=== PATIENT | female | born 1965 | race Hispanic/Latino ===

== ENCOUNTER 2018-08-07 13:13 | Emergency (ER) | payer BC, OTHER ==
[2018-08-07 14:06] LABS: Absolute Lymphocytes (CBC) 1.6 K/uL (0.7-4.9); Absolute Monocytes 0.4 K/uL (0.1-1.3); Basophils % 0.7 % (0-1.3); Eosinophils % 1.8 % (0-4.4); Hematocrit 38.2 % (36.0-45.0); Lymphocytes % 22.4 % (15.3-44.8); MPV 9.9 fL (7.6-11.3); RBC Red Blood Cell Count 4.25 M/uL (3.86-4.86)
[2018-08-07 14:22] LABS: ALT/SGPT 75 U/L (12-78); AST/SGOT 35 U/L (15-37); Albumin 3.2 g/dL (3.4-5.0); Alkaline Phosphatase 167 U/L (45-117); BUN Blood Urea Nitrogen 13 mg/dL (7-18); Bicarbonate 28 mmol/L (21-32); Bilirubin Direct 0.1 mg/dL (0-0.2); Bilirubin Total 0.3 mg/dL (0.2-1.0); Glucose Level 269 mg/dL (74-106); Lipase 101 U/L (73-393); Potassium 4.3 mmol/L (3.5-5.1); Sodium Level 138 mmol/L (136-145)
[2018-08-07 14:38] LABS: Urine Blood NEGATIVE (NEG); Urine Glucose TRACE (NEG); Urine Protein NEGATIVE (NEG); Urine Specific Gravity >1.030 (1.005-1.030); Urine pH 5.5 (5.0-7.0)
--- NOTE | 2018-08-07 14:56 | RAD REPORT ---
EXAM DESCRIPTION: CTAbdomen Pelvis W Contrast - 08/07/2018 2:42 pm CLINICAL HISTORY: Abdominal pain. right lower abdominal pain, pelvic pain, IV ONLY COMPARISON: No comparisons TECHNIQUE: Biphasic CT imaging of the abdomen and pelvis was performed with 100 ml non-ionic IV cont rast. All CT scans are performed using dose optimization technique as appropriate and may include automated exposure control or mA/KV adjustment according to patient size. FINDINGS: The lung bases are clear. The liver, spleen, pancreas, adrenal glands and kidneys are within normal limits. Cholecystectomy. No bowel obstruction, free air, free fluid or abscess. Moderate stool is present in the rectum. The a ppendix is normal. No evidence of significant lymphadenopathy. Moderate L4-5 spondylosis. IUD appears mildly low in position at the lower uterine segment level. IMPRESSION: IUD appears low in position at the level of the lower uterine segment. No ovarian cyst. Normal appendix.
[2018-08-07] MEDS ORDERED: ONDANSETRON 4 MG/2 ML VIAL ONE (15:31)
[2018-08-07] MEDS ORDERED: MORPHINE 4 MG/ML SYR ONE (15:31)
--- NOTE | 2018-08-07 16:13 | RAD REPORT ---
EXAM DESCRIPTION: US - Transvaginal Study Probe - 08/07/2018 3:55 pm CLINICAL HISTORY: right sided pelvic pain, rule out torsion Pelvic pain. COMPARISON: No comparisons FINDINGS: The uterus is normal in size, shape and echotexture. Vague fundal intramural fibroid is pr esent measuring 17 x 15 mm. The uterus measures 9.1 x 6.0 x 4.9 cm. The endometrial stripe is thin with IUD present in the lower uterine segment. The left ovary was obscured by bowel gas. The right ovary is normal in size, shape and echotexture with normal Doppler blood flow. The right ov yolanda measures 2.6 x 1.9 x 1.7 cm. No significant pelvic ascites. IMPRESSION: IUD is in the lower uterine segment. No evidence of right ovarian torsion or right sided ovarian abnormality. Left ovary was obscured by b owel gas. Small intramural fibroid in the fundal region measuring 17 x 15 mm.
--- NOTE | 2018-08-07 16:53 | EDPHYS ---
Physician Documentation [facility] Name: Cindy Martines Age: 53 yrs Sex: Female : 1965 Arrival Date: 08/07/2018 Time: 13:17 Bed 30 Private MD: Laura Corado ED Physician Emmanuel Boogie HPI: 08/07 14:09 This 53 yrs old Female presents to ER via Ambulatory with complaints of Pelvic jmm Pain. 14:09 The patient presents with abdominal pain. Onset: The symptoms/episode began/occurred jmm gradually, 1 month(s) ago. The symptoms radiate to right leg. The symptoms are described as achy, sharp. Modifying factors: The symptoms are alleviated by nothing, the symptoms are aggravated by movement, pressure. This is a 53 year old female with a history of dm , htn, hlp that presents to the ED with lower abdominal and pelvic pain beginning 1 month ago. Patient states pain radiates to the right thigh, right hip. Denies vomiting, diarrhea, fever. . Historical: - Allergies: 13:28 No Known Allergies; ss - PMHx: 13:28 Diabetes - IDDM; Hypertension; High Cholesterol; Depression; ss 13:29 Hypothyroidism; ss - PSHx: 13:28 Cholecystectomy; ; ss - Immunization history:: Adult Immunizations up to date. - Social history:: Smoking status: Patient/guardian denies using tobacco. - Ebola Screening: : Patient denies exposure to infectious person Patient denies travel to an Ebola-affected area in the 21 days before illness onset. ROS: 14:09 Constitutional: Negative for fever, chills, and weight loss, Cardiovascular: Negative jmm for chest pain, palpitations, and edema, Respiratory: Negative for shortness of breath, cough, wheezing, and pleuritic chest pain. 14:09 Abdomen/GI: Positive for abdominal pain. 14:09 : Positive for pelvic pain. 14:09 All other systems are negative. Exam: 14:09 Head/Face: atraumatic. Eyes: EOMI, no conjunctival erythema appreciated ENT: Moist jmm Mucus Membranes Neck: Trachea midline, Supple Chest/axilla: Normal chest wall appearance and motion. Cardiovascular: Regular rate and rhythm. No edema appreciated Respiratory: Normal respirations, no respiratory distress appreciated 14:09 Constitutional: The patient appears in no acute distress, alert, awake. 14:09 Abdomen/GI: Inspection: obese Bowel sounds: normal, Palpation: soft, moderate abdominal tenderness, in the suprapubic area and right lower quadrant. 14:09 Skin: Appearance: Color: normal in color. 14:09 Neuro: Orientation: is normal, Mentation: is normal, Memory: is normal. 14:09 Psych: Behavior/mood is pleasant, cooperative. Vital Signs: 13:28 BP 138 / 80; Resp 15; Temp 98.3(TE); Pulse Ox 95% on R/A; Weight 104.33 kg; Height 5 ss ft. 0 in. (152.40 cm); Pain 8/10; 15:20 BP 147 / 60; Pulse 73; Resp 16; Pulse Ox 99% on R/A; kr2 17:01 BP 140 / 76; Pulse 72; Resp 17; Pulse Ox 99% on R/A; kr2 13:28 Body Mass Index 44.92 (104.33 kg, 152.40 cm) ss MDM: 13:39 Patient medically screened. [facility] 16:37 Data reviewed: vital signs, nurses notes. Counseling: I had a detailed discussion with ramon the patient and/or guardian regarding: the historical points, exam findings, and any diagnostic results supporting the discharge/admit diagnosis, lab results, radiology results, the need for outpatient follow up, to return to the emergency department if symptoms worsen or persist or if there are any questions or concerns that arise at home. 16:37 Response to treatment: the patient's symptoms have markedly improved after treatment, ramon and as a result, I will discharge patient. 08/07 13:44 Order name: Basic Metabolic Panel; Complete Time: 14:41 [facility] 08/07 13:44 Order name: CBC with Diff; Complete Time: 14:41 [facility] 08/07 13:44 Order name: Creatinine for Radiology; Complete Time: 14:41 [facility] 08/07 13:44 Order name: Hepatic Function; Complete Time: 14:41 [facility] 08/07 13:44 Order name: Lipase; Complete Time: 14:41 [facility] 08/07 13:44 Order name: Test, Serum; Complete Time: 14:41 [facility] 08/07 13:44 Order name: IV Saline Lock; Complete Time: 14:04 [facility] 08/07 13:44 Order name: CT Abd/Pelvis - W/Contrast; Complete Time: 15:08 [facility] 08/07 14:06 Order name: Urine Dipstick--Ancillary (enter results); Complete Time: 14:41 bd 08/07 14:06 Order name: Urine --Ancillary (enter results); Complete Time: 14:41 bd 08/07 15:21 Order name: Transvaginal Study Probe; Complete Time: 16:19 [facility] 08/07 13:44 Order name: Labs collected and sent; Complete Time: 14:04 [facility] 08/07 13:44 Order name: Urine Dipstick-Ancillary (obtain specimen); Complete Time: 14:04 [facility] Administered Medications: 15:27 Drug: Zofran 4 mg Route: IVP; Site: right antecubital; kr2 16:00 Follow up: Response: No adverse reaction kr2 15:30 Drug: morphine 4 mg Route: IVP; Site: right antecubital; kr2 16:00 Follow up: Response: No adverse reaction; Pain is decreased kr2 Disposition: 18:43 Co-signature as Attending Physician, Emmanuel Boogie MD. rn Disposition: 08/07/18 16:52 Discharged to Home. Impression: Abdominal and pelvic pain. - Condition is Stable. - Discharge Instructions: Pelvic Pain, Female. - Prescriptions for Tylenol- Codeine #3 300-30 mg Oral Tablet - take 1 tablet by ORAL route every 6 hours As needed; 20 tablet. - Medication Reconciliation Form, Thank You Letter, Antibiotic Education, Prescription Opioid Use form. - Follow up: Laura Corado MD; When: 2 - 3 days; Reason: Recheck today's complaints, Continuance of care, Re-evaluation by your physician. Signatures: Dispatcher [employer] [facility] Tommy Mckay PA PA Emmanuel Nieves MD MD rn Smirch, Shelby, RN RN ss Reaves, Karey, RN RN kr2 Corrections: (The following items were deleted from the chart) 15:21 15:19 Pelvis Complete+US.RAD.BRZ ordered. [facility] 17:05 16:52 08/07/2018 16:52 Discharged to Home. Impression: Abdominal and pelvic pain. kr2 Condition is Stable. Forms are Medication Reconciliation Form, Thank You Letter, Antibiotic Education, Prescription Opioid Use. Follow up: Laura Corado; When: 2 - 3 days; Reason: Recheck today's complaints, Continuance of care, Re-evaluation by your physician. ramon
--- NOTE | 2018-08-07 16:53 | ER ---
Nurse's Notes [facility] Name: Cindy Martines Age: 53 yrs Sex: Female : 1965 Arrival Date: 08/07/2018 Time: 13:17 Bed 30 Private MD: Laura Corado Diagnosis: Abdominal and pelvic pain Presentation: 08/07 13:25 Presenting complaint: Patient states: RLQ pain that radiates down R leg, is worse when ss bending over or stretching x [address] Langston ordered testing to r/o ovarian cyst, but ultrasound is scheduled for August 18, and patient reports that her her pain is just not getting better. Transition of care: patient was not received from another setting of care. Onset of symptoms was June 2018. Risk Assessment: Do you want to hurt yourself or someone else? Patient reports no desire to harm self or others. Initial Sepsis Screen: Does the patient meet any 2 criteria? No. Patient's initial sepsis screen is negative. Does the patient have a suspected source of infection? No. Patient's initial sepsis screen is negative. Care prior to arrival: None. 13:25 Method Of Arrival: Ambulatory ss 13:25 Acuity: JEYSON 3 ss Triage Assessment: 14:05 General: Appears in no apparent distress. comfortable, Behavior is calm, cooperative, kr2 appropriate for age. Pain: Complains of pain in right lower quadrant Pain radiates to right lower leg Pain currently is 5 out of 10 on a pain scale. Quality of pain is described as aching, radiating, sharp, Is continuous. Historical: - Allergies: 13:28 No Known Allergies; ss - PMHx: 13:28 Diabetes - IDDM; Hypertension; High Cholesterol; Depression; ss 13:29 Hypothyroidism; ss - PSHx: 13:28 Cholecystectomy; ; ss - Immunization history:: Adult Immunizations up to date. - Social history:: Smoking status: Patient/guardian denies using tobacco. - Ebola Screening: : Patient denies exposure to infectious person Patient denies travel to an Ebola-affected area in the 21 days before illness onset. Screenin:05 Abuse screen: Denies threats or abuse. Denies injuries from another. Nutritional kr2 screening: No deficits noted. Tuberculosis screening: No symptoms or risk factors identified. Fall Risk None identified. Assessment: 14:07 General: Appears in no apparent distress. comfortable, Behavior is calm, cooperative. kr2 Neuro: Level of Consciousness is awake, alert, obeys commands, Oriented to person, place, time, situation, Appropriate for age. Cardiovascular: Patient's skin is warm and dry. Respiratory: Airway is patent Respiratory effort is even, unlabored, Respiratory pattern is regular, symmetrical. GI: Abdomen is flat, non-distended, Bowel sounds present X 4 quads. : Denies burning with urination. Derm: Skin is intact, is healthy with good turgor, Skin is pink, warm \T\ dry. 15:15 Reassessment: Patient appears in no apparent distress at this time. Patient and/or kr2 family updated on plan of care and expected duration. Pain level reassessed. Patient is alert, oriented x 3, equal unlabored respirations, skin warm/dry/pink. 16:26 Reassessment: Patient appears in no apparent distress at this time. Patient and/or kr2 family updated on plan of care and expected duration. Pain level reassessed. Patient is alert, oriented x 3, equal unlabored respirations, skin warm/dry/pink. Pain decreased with morphine. Vital Signs: 13:28 BP 138 / 80; Resp 15; Temp 98.3(TE); Pulse Ox 95% on R/A; Weight 104.33 kg; Height 5 ss ft. 0 in. (152.40 cm); Pain 8/10; 15:20 BP 147 / 60; Pulse 73; Resp 16; Pulse Ox 99% on R/A; kr2 17:01 BP 140 / 76; Pulse 72; Resp 17; Pulse Ox 99% on R/A; kr2 13:28 Body Mass Index 44.92 (104.33 kg, 152.40 cm) ED Course: 13:17 Patient arrived in ED. sb2 13:18 Laura Corado MD is Private Physician. sb2 13:27 Triage completed. ss 13:28 Arm band placed on left wrist. ss 13:30 Aimee Henning, RN is Primary Nurse. kr2 13:33 Tommy Mckay PA is PHCP. jmm 13:33 Emmanuel Boogie MD is Attending Physician. jmm 13:48 Radiology exam delayed due to lab results not completed at this time. test mw3 not completed at this time. 13:55 Inserted saline lock: 22 gauge in right antecubital area, using aseptic technique. kr2 Blood collected. 14:00 Patient has correct armband on for positive identification. Bed in low position. Call kr2 light in reach. Side rails up X 1. Adult w/ patient. Pulse ox on. NIBP on. Door closed. Head of bed elevated. 14:04 Basic Metabolic Panel Sent. kr2 14:04 CBC with Diff Sent. kr2 14:04 Creatinine for Radiology Sent. kr2 14:04 Hepatic Function Sent. kr2 14:04 Lipase Sent. kr2 14:43 CT Abd/Pelvis - W/Contrast In Process Unspecified. EDMS 15:55 Transvaginal Study Probe In Process Unspecified. EDMS 16:52 Laura Corado MD is Referral Physician. [facility] 17:01 No provider procedures requiring assistance completed. IV discontinued, intact, kr2 bleeding controlled, No redness/swelling at site. Pressure dressing applied. Administered Medications: 15:27 Drug: Zofran 4 mg Route: IVP; Site: right antecubital; kr2 16:00 Follow up: Response: No adverse reaction kr2 15:30 Drug: morphine 4 mg Route: IVP; Site: right antecubital; kr2 16:00 Follow up: Response: No adverse reaction; Pain is decreased kr2 Outcome: 16:52 Discharge ordered by . [facility] 17:02 Discharged to home ambulatory, with family. kr2 17:02 Condition: good 17:02 Discharge instructions given to patient, Instructed on discharge instructions, follow up and referral plans. medication usage, Demonstrated understanding of instructions, follow-up care, medications, Prescriptions given X 1. 17:05 Patient left the ED. kr2 Signatures: Dispatcher [employer] EDMS Tommy Mckay PA PA jmm Smirch, Shelby, RN RN ss Aimee Henning RN RN kr2 Angela Clark2 Lupe Gray mw3
== END 2018-08-07 17:05 | disposition home or self-care (01) ==
LOC: ER 13:13
DX: R10.2 Pelvic and perineal pain (principal); I10 Essential (primary) hypertension
CPT/HCPCS: 36415; 74177; 76830; 80048; 80076; 81003; 81025; 83690; 84703; 85025; 96374; 96375; 99284; J2405; Q9967

== ENCOUNTER 2020-10-15 08:48 | Emergency (ER) | payer BC ==
--- NOTE | 2020-10-15 09:09 | EDPHYS ---
Physician Documentation [facility] Name: Cindy Martines Age: 55 yrs Sex: Female : 1965 Arrival Date: 10/15/2020 Time: 08:51 Bed 4 Private MD: ED Physician Emmanuel Boogie HPI: 10/15 09:06 This 55 yrs old Female presents to ER via Unassigned with complaints of rn Shingles. 09:06 The patient's rash thought to be caused by an unknown cause. The rash is located on the rn left lower back. The rash can be described as erythematous, vesicular. Onset: The symptoms/episode began/occurred 3 day(s) ago. Severity of symptoms: At their worst the symptoms were mild in the emergency department the symptoms are unchanged. The patient has not experienced similar symptoms in the past. Reports painful rash to left lower back, wraps around to left abdomen, no fever.. Historical: - Allergies: :07 No Known Allergies; hb - PMHx: 09:07 Depression; Diabetes - IDDM; High Cholesterol; Hypertension; Hypothyroidism; hb - PSHx: 09:07 Cholecystectomy; ; hb - Immunization history:: Adult Immunizations up to date. - Social history:: Smoking status: Patient denies any tobacco usage or history of. - Family history:: not pertinent. - Hospitalizations: : No recent hospitalization is reported. ROS: 09:06 Constitutional: Negative for fever, chills, and weight loss, Skin: + rash to left lower rn back Neuro: Negative for headache, weakness, and seizure. Exam: 09:06 Constitutional: This is a well developed, well nourished patient who is awake, alert, rn and in no acute distress. Skin: Warm, dry, + erythematous base with papular and pustular lesions in linear distribution left lower back and left abdomen. Vital Signs: 09:02 BP 169 / 84; Pulse 78; Resp 16; Temp 97.7; Pulse Ox 100% on R/A; Pain 5/10; hb MDM: 08:59 Patient medically screened. rn 09:06 Differential diagnosis: shingles. Data reviewed: vital signs, nurses notes, and as a rn result, I will discharge patient. Counseling: I had a detailed discussion with the patient and/or guardian regarding: the historical points, exam findings, and any diagnostic results supporting the discharge/admit diagnosis, the need for outpatient follow up, to return to the emergency department if symptoms worsen or persist or if there are any questions or concerns that arise at home. Special discussion: I discussed with the patient/guardian in detail that at this point there is no indication for admission to the hospital. It is understood, however, that if the symptoms persist or worsen the patient needs to return immediately for re-evaluation. Administered Medications: No medications were administered Disposition: 10/15/20 09:08 Discharged to Home. Impression: Zoster [herpes zoster]. - Condition is Stable. - Discharge Instructions: Shingles. - Prescriptions for Valtrex 1 g Oral Tablet - take 1 tablet by ORAL route every 8 hours for 7 days; 21 tablet. Prednisone 20 mg Oral Tablet - take 1 tablet by ORAL route as directed for 10 days Take 3 tablets by mouth daily for 5 days, then take 2 tablets by mouth daily for 3 days, then take 1 tablet by mouth daily for 2 days, total of 10 days.; 23 tablet. - Medication Reconciliation Form, Thank You Letter, Antibiotic Education, Prescription Opioid Use form. - Follow up: Private Physician; When: As needed; Reason: Recheck today's complaints, Re-evaluation by your physician. - Problem is new. - Symptoms are unchanged. Signatures: Emmanuel Boogie MD MD rn Baxter, Heather, RN RN Corrections: (The following items were deleted from the chart) 09:19 09:08 10/15/2020 09:08 Discharged to Home. Impression: Zoster [herpes zoster]. hb Condition is Stable. Forms are Medication Reconciliation Form, Thank You Letter, Antibiotic Education, Prescription Opioid Use. Follow up: Private Physician; When: As needed; Reason: Recheck today's complaints, Re-evaluation by your physician. Problem is new. Symptoms are unchanged. rn
--- NOTE | 2020-10-15 09:09 | ER ---
Nurse's Notes [facility] Name: Cindy Martines Age: 55 yrs Sex: Female : 1965 Arrival Date: 10/15/2020 Time: 08:51 Bed 4 Private MD: Diagnosis: Zoster [herpes zoster] Presentation: 10/15 09:02 Chief complaint: Painful, burning rash on left flank x 3 days. Coronavirus screen: At this time, the client does not indicate any symptoms associated with coronavirus-19. Ebola Screen: No symptoms or risks identified at this time. Initial Sepsis Screen: Does the patient meet any 2 criteria? No. Patient's initial sepsis screen is negative. Does the patient have a suspected source of infection? No. Patient's initial sepsis screen is negative. Risk Assessment: Do you want to hurt yourself or someone else? Patient reports no desire to harm self or others. Onset of symptoms was October 12, 2020. 09:02 Method Of Arrival: Ambulatory 09:02 Acuity: JEYSON 4 hb Triage Assessment: 09:03 General: Appears in no apparent distress. Behavior is calm, cooperative. Pain: Pain hb currently is 5 out of 10 on a pain scale. EENT: No signs and/or symptoms were reported regarding the EENT system. Neuro: Level of Consciousness is awake, alert, obeys commands, Oriented to person, place, time, situation. Cardiovascular: Capillary refill < 3 seconds Patient's skin is warm and dry. Respiratory: Respiratory effort is even, unlabored, Respiratory pattern is regular, symmetrical. GI: No signs and/or symptoms were reported involving the gastrointestinal system. : No signs and/or symptoms were reported regarding the genitourinary system. Derm: Rash noted that is left flank. Musculoskeletal: No signs and/or symptoms reported regarding the musculoskeletal system. Historical: - Allergies: : No Known Allergies; hb - PMHx: : Depression; Diabetes - IDDM; High Cholesterol; Hypertension; Hypothyroidism; hb - PSHx: 09: Cholecystectomy; ; hb - Immunization history:: Adult Immunizations up to date. - Social history:: Smoking status: Patient denies any tobacco usage or history of. - Family history:: not pertinent. - Hospitalizations: : No recent hospitalization is reported. Screenin:03 Abuse screen: Denies threats or abuse. Denies injuries from another. Nutritional hb screening: No deficits noted. Tuberculosis screening: No symptoms or risk factors identified. Fall Risk None identified. Assessment: 09:03 General: see triage assessment . hb Vital Signs: 09:02 BP 169 / 84; Pulse 78; Resp 16; Temp 97.7; Pulse Ox 100% on R/A; Pain 5/10; hb ED Course: 08:51 Patient arrived in ED. mr 08:59 Emmanuel Boogie MD is Attending Physician. rn 08:59 Judy Burns, MADELINE is Primary Nurse. ph 09:03 Patient has correct armband on for positive identification. Bed in low position. Call hb light in reach. 09:07 Triage completed. hb 09:17 Arm band placed on. hb 09:19 No provider procedures requiring assistance completed. Patient did not have IV access hb during this emergency room visit. Administered Medications: No medications were administered Outcome: :08 Discharge ordered by . rn 09:19 Discharged to home ambulatory. hb 09:19 Condition: stable 09:19 Discharge instructions given to patient, Instructed on discharge instructions, follow up and referral plans. medication usage, Demonstrated understanding of instructions, follow-up care, medications, Prescriptions given X 2. 09:19 Patient left the ED. hb Signatures: Yaenlis Villela mr Emmanuel Boogie MD MD rn Judy Burns RN RN Julia Fitch RN RN hb
[2020-10-15 09:24] VITALS: BP 169/84; TEMP 97.7; O2SAT 100
== END 2020-10-15 09:19 | disposition home or self-care (01) ==
LOC: ER 08:48
DX: B02.9 Zoster without complications (principal); I10 Essential (primary) hypertension
CPT/HCPCS: 99282

== ENCOUNTER 2021-02-20 14:54 | Observation (INO) | payer BC ==
[2021-02-20 20:11] LABS: Absolute Lymphocytes (CBC) 2.4 K/uL (0.7-4.9); Basophils % 1.2 % (0-1.3); Hematocrit 38.2 % (36.0-45.0); Lymphocytes % 30.7 % (15.3-44.8); MPV 10.4 fL (7.6-11.3); RBC Red Blood Cell Count 4.23 M/uL (3.86-4.86)
[2021-02-20 20:20] LABS: Protime INR 0.91
[2021-02-20 20:31] LABS: ALT/SGPT 16 U/L (12-78); AST/SGOT 12 U/L (15-37); Albumin 3.5 g/dL (3.4-5.0); Alkaline Phosphatase 74 U/L (45-117); BUN Blood Urea Nitrogen 21 mg/dL (7-18); Bicarbonate 25 mmol/L (21-32); Bilirubin Direct < 0.1 mg/dL (0-0.2); Bilirubin Total 0.3 mg/dL (0.2-1.0); Glucose Level 248 mg/dL (74-106); Lipase 143 U/L (73-393); Magnesium 2.4 mg/dL (1.8-2.4); NT PRO-BNP 14 pg/mL (<125); Potassium 4.4 mmol/L (3.5-5.1); Protein, Total 7.4 g/dL (6.4-8.2); Sodium Level 136 mmol/L (136-145); Troponin (Emerg Dept Use Only) < 0.02 ng/mL (0.0-0.045)
--- NOTE | 2021-02-20 20:48 | RAD REPORT ---
EXAM DESCRIPTION: RAD - Chest Single View - 02/20/2021 8:22 pm CLINICAL HISTORY: CHEST PAIN COMPARISON: July 2016 TECHNIQUE: AP portable chest image was obtained 02/20/2021 8:22 pm . FINDINGS: Lung volumes are low accentuating interstitial pattern. No peripheral mass or consolidatio n. No significant failure or volume overload. Heart and vasculature are normal. No measurable pleural effusion and no pneumothorax. No acute bony abnormality seen. No acute aortic findings suspected. IMPRESSION: No acute cardiopulmonary process. No significant change from comparison study.
[2021-02-20] MEDS ORDERED: MORPHINE 2 MG/ML SYR ONE (20:59)
[2021-02-20] MEDS ORDERED: ONDANSETRON 4 MG/2 ML VIAL ONE (20:59)
--- NOTE | 2021-02-20 21:16 | ER ---
Nurse's Notes [facility] Name: Cindy Martines Age: 55 yrs Sex: Female : 1965 Arrival Date: 02/20/2021 Time: 14:56 Bed 2 Private MD: NANCY JACOBS Diagnosis: Chest pain, unspecified Presentation: 02/20 15:04 Chief complaint: Patient states: chest pain that began yesterday and radiating to back aa5 today. Pt denies any other symptoms. Pt reports she has only been taking her diabetes medication over the last year because of COVID, she's been out of HTN meds and Thyroid meds. Coronavirus screen: At this time, the client does not indicate any symptoms associated with coronavirus-19. Ebola Screen: Patient negative for fever greater than or equal to 101.5 degrees Fahrenheit, and additional compatible Ebola Virus Disease symptoms. Initial Sepsis Screen: Does the patient meet any 2 criteria? No. Patient's initial sepsis screen is negative. Does the patient have a suspected source of infection? No. Patient's initial sepsis screen is negative. Risk Assessment: Do you want to hurt yourself or someone else? Patient reports no desire to harm self or others. Onset of symptoms was February 2021. 15:04 Method Of Arrival: Ambulatory aa5 15:04 Acuity: JEYSON 3 aa5 Historical: - Allergies: 15:04 No Known Allergies; aa5 - PMHx: 15:04 Depression; Diabetes - IDDM; High Cholesterol; Hypertension; Hypothyroidism; aa5 - Immunization history:: Client reports receiving the 1st dose of the Covid vaccine, Flu vaccine is not up to date. - Social history:: Smoking status: Patient denies any tobacco usage or history of. Screenin:02 Abuse screen: Denies threats or abuse. Denies injuries from another. Nutritional ad5 screening: No deficits noted. Tuberculosis screening: No symptoms or risk factors identified. Fall Risk None identified. Assessment: 20:00 General: Appears in no apparent distress. Behavior is calm, cooperative, appropriate ad5 for age. Pain: Complains of pain in chest Pain does not radiate. Pain began gradually, 1 day ago. Neuro: Level of Consciousness is awake, alert, obeys commands, Oriented to person, place, time, situation, Appropriate for age Moves all extremities. Cardiovascular: Reports chest pain, fatigue, lightheadedness, Heart tones present Capillary refill < 3 seconds Patient's skin is warm and dry. Pulses are all present. Rhythm is regular. Respiratory: No deficits noted. Airway is patent Respiratory effort is even, unlabored, Respiratory pattern is regular, symmetrical. GI: Reports nausea, poor appetite. : No deficits noted. No signs and/or symptoms were reported regarding the genitourinary system. Derm: Skin is pink, warm \T\ dry. 20:30 Reassessment: Patient appears in no apparent distress at this time. Pt refused ordered ad5 pain meds at this time, denies new or worsening c/o or needs at this time. Pt resting comfortably in stretcher, resp with ease. VS remain stable, call light within reach, bed low and locked, bedrails x 1. Will continue to monitor. 21:12 Reassessment: Patient appears in no apparent distress at this time. Patient and/or ad5 family updated on plan of care and expected duration. Pain level reassessed. Patient is alert, oriented x 3, equal unlabored respirations, skin warm/dry/pink. 22:00 Reassessment: Patient appears in no apparent distress at this time. No changes from ad5 previously documented assessment. Patient and/or family updated on plan of care and expected duration. Pain level reassessed. 23:15 Reassessment: Pt up to restroom, ambulates independently with steady gait. Repositioned ad5 for comfort into bed. VSS. Denies other needs or c/o. Call light within reach. NAD noted, will continue to monitor. Vital Signs: 15:04 BP 142 / 69; Pulse 77; Resp 18 S; Temp 98.4(TE); Pulse Ox 99% on R/A; Weight 109.32 kg aa5 (R); Height 5 ft. 1 in. (154.94 cm) (R); 19:43 BP 120 / 57; Pulse 74; Resp 18 S; Pulse Ox 99% on R/A; ad5 21:14 BP 111 / 48; Pulse 73; Resp 18 S; Pulse Ox 99% on R/A; ad5 22:00 BP 100 / 79; Pulse 76; Resp 18 S; Pulse Ox 97% on R/A; ad5 23:15 BP 133 / 62; Pulse 68; Resp 18 S; Pulse Ox 94% ; ad5 15:04 Body Mass Index 45.54 (109.32 kg, 154.94 cm) aa5 ED Course: 14:56 Patient arrived in ED. am2 14:57 NANCY JACOBS is Private Physician. am2 15:04 Arm band placed on. aa5 15:06 Triage completed. aa5 15:09 EKG completed in triage. Results shown to MD. aa5 19:38 Olman Hobson MD is Attending Physician. 7 19:43 Conor Santos is Primary Nurse. ad5 20:00 XRAY Chest (1 view) Sent. ad5 20:00 No provider procedures requiring assistance completed. Initial lab(s) drawn, by ms, ad5 sent to lab. Inserted saline lock: 20 gauge in right antecubital area, using aseptic technique. Blood collected. 20:22 XRAY Chest (1 view) In Process Unspecified. EDMS 21:16 Dawit Rodríguez MD is Hospitalizing Provider. [facility] 22:00 Patient has correct armband on for positive identification. Bed in low position. Call ea light in reach. trucking manager on. 22:01 Patient admitted, IV remains in place. ea 22:01 Patient maintains SpO2 saturation greater than 95% on room air. ea Administered Medications: 21:15 Not Given (Patient Refused): morphine 2 mg IVP once; (PAIN>8) RASS on ADMN: Combtv4, ad5 Very Agttd3, Agttd2, Rstlss1, AlertClm0, Drwsy-1, LtSdtn-2, ModSdtn-3, DpSdtn-4, UnArsble-5 x2 21:15 Not Given (Patient Refused): Zofran (Ondansetron) 4 mg IVP once; over 2 minutes ad5 21:25 Drug: Aspirin Chewable Tablet 324 mg Route: PO; ad5 Outcome: 21:16 Decision to Hospitalize by Provider. [facility] 22:00 Admitted to ER Hold. Please see [facility] for further documentation. ea 22:00 Condition: stable 22:00 Instructed on the need for admit, Demonstrated understanding of instructions. 02/21 14:34 Patient left the ED. kg Signatures: Dispatcher [employer] EDMS Abby Schwartz RN RN 5 Celestina Castro am2 Renetta Rivas RN RN Olman Purdy MD MD 7 Rhonda Gee RN RN kg Conor Santos
--- NOTE | 2021-02-20 21:17 | EDPHYS ---
Physician Documentation [facility] Name: Cindy Martines Age: 55 yrs Sex: Female : 1965 Arrival Date: 02/20/2021 Time: 14:56 Bed 2 Private MD: NANCY JACOBS ED Physician Olman Hobson HPI: 02/20 19:55 This 55 yrs old Female presents to ER via Ambulatory with complaints of Chest mh7 Pain. 19:55 The patient or guardian reports chest pain that is located primarily in the substernal mh7 area. Onset: last night. The pain radiates to left back. Associated signs and symptoms: Pertinent positives: dizziness, lightheadedness, nausea, Pertinent negatives: abdominal pain, cough, diaphoresis, headache, lower extremity pain, lower extremity swelling, near syncope, palpitations, recent travel, shortness of breath, syncope, vomiting. The chest pain is described as burning. Duration: The patient or guardian reports multiple episodes, that are intermittent, that wax and wane, with no pattern. Modifying factors: The symptoms are alleviated by nothing. the symptoms are aggravated by movement. Severity of pain: At its worst the pain was moderate last night, in the emergency department the pain has improved moderately. Historical: - Allergies: 15:04 No Known Allergies; aa5 - PMHx: 15:04 Depression; Diabetes - IDDM; High Cholesterol; Hypertension; Hypothyroidism; aa5 - Immunization history:: Client reports receiving the 1st dose of the Covid vaccine, Flu vaccine is not up to date. - Social history:: Smoking status: Patient denies any tobacco usage or history of. ROS: 19:55 Constitutional: Negative for fever, chills, and weight loss, Eyes: Negative for injury, mh7 pain, redness, and discharge, ENT: Negative for injury, pain, and discharge, Neck: Negative for injury, pain, and swelling, Respiratory: Negative for shortness of breath, cough, wheezing, and pleuritic chest pain, : Negative for injury, bleeding, discharge, and swelling, MS/Extremity: Negative for injury and deformity, Skin: Negative for injury, rash, and discoloration, Neuro: Negative for headache, weakness, numbness, tingling, and seizure, Psych: Negative for depression, anxiety, suicide ideation, homicidal ideation, and hallucinations, Allergy/Immunology: Negative for hives, rash, and allergies, Endocrine: Negative for neck swelling, polydipsia, polyuria, polyphagia, and marked weight changes, Hematologic/Lymphatic: Negative for swollen nodes, abnormal bleeding, and unusual bruising. 19:55 Abdomen/GI: Negative for abdominal pain, hematemesis, black/tarry stool, rectal pain, rectal bleeding. 19:55 Back: Negative for Exam: 19:55 Constitutional: This is a well developed, well nourished patient who is awake, alert, mh7 and in no acute distress. Head/Face: Normocephalic, atraumatic. Eyes: Pupils equal round and reactive to light, extra-ocular motions intact. Lids and lashes normal. Conjunctiva and sclera are non-icteric and not injected. Cornea within normal limits. Periorbital areas with no swelling, redness, or edema. Neck: Trachea midline, no thyromegaly or masses palpated, and no cervical lymphadenopathy. Supple, full range of motion without nuchal rigidity, or vertebral point tenderness. No Meningismus. 19:55 Cardiovascular: Regular rate and rhythm with a normal S1 and S2. No gallops, murmurs, or rubs. Normal PMI, no JVD. No pulse deficits. Respiratory: Lungs have equal breath sounds bilaterally, clear to auscultation and percussion. No rales, rhonchi or wheezes noted. No increased work of breathing, no retractions or nasal flaring. Abdomen/GI: Soft, non-tender, with normal bowel sounds. No distension or tympany. No guarding or rebound. No evidence of tenderness throughout. Back: No spinal tenderness. No costovertebral tenderness. Full range of motion. Skin: Warm, dry with normal turgor. Normal color with no rashes, no lesions, and no evidence of cellulitis. MS/ Extremity: Pulses equal, no cyanosis. Neurovascular intact. Full, normal range of motion. Neuro: Awake and alert, GCS 15, oriented to person, place, time, and situation. Cranial nerves II-XII grossly intact. Motor strength 5/5 in all extremities. Sensory grossly intact. Cerebellar exam normal. Normal gait. Psych: Awake, alert, with orientation to person, place and time. Behavior, mood, and affect are within normal limits. 19:55 Chest/axilla: Inspection: normal, Palpation: tenderness, that is moderate, of the mid-sternal area, that totally reproduces the patient's complaints, Axilla: are normal, Lymph nodes: lymphadenopathy is not appreciated. Vital Signs: 15:04 BP 142 / 69; Pulse 77; Resp 18 S; Temp 98.4(TE); Pulse Ox 99% on R/A; Weight 109.32 kg aa5 (R); Height 5 ft. 1 in. (154.94 cm) (R); 19:43 BP 120 / 57; Pulse 74; Resp 18 S; Pulse Ox 99% on R/A; ad5 21:14 BP 111 / 48; Pulse 73; Resp 18 S; Pulse Ox 99% on R/A; ad5 22:00 BP 100 / 79; Pulse 76; Resp 18 S; Pulse Ox 97% on R/A; ad5 23:15 BP 133 / 62; Pulse 68; Resp 18 S; Pulse Ox 94% ; ad5 15:04 Body Mass Index 45.54 (109.32 kg, 154.94 cm) aa5 MDM: 21:14 Differential diagnosis: abnormal EKG, acute myocardial infarction, acute pericarditis, mh7 anxiety, coronary artery disease chest wall pain, congestive heart failure costochondritis, myocarditis, pericarditis, pneumonia, pneumothorax. HEART Score: History: Moderately Suspicious (1), ECG: Non specific repolarization disturbance / LBTB / PM (1), Age: > 45 and < 65 years (1), Risk Factors: > or = 3 Risk factors for atherosclerotic disease (2), [Hypercholesterolemia] [Hypertension] [DM] Troponin: < or = 1 x Normal Limit (0), Total Score = 5. 21:15 The patient was given aspirin in the Emergency Department. Data reviewed: vital signs, 7 nurses notes, lab test result(s), cardiac enzymes, CBC, electrolytes, EKG, radiologic studies, plain films. Data interpreted: Pulse oximetry: on room air is 99 %. Interpretation: normal. Counseling: I had a detailed discussion with the patient and/or guardian regarding: the historical points, exam findings, and any diagnostic results supporting the discharge/admit diagnosis, lab results, radiology results, the need for further work-up and treatment in the hospital. Response to treatment: the patient's symptoms have mildly improved after treatment. 21:16 Patient medically screened. [facility] 02/20 19:49 Order name: Basic Metabolic Panel [facility] 02/20 19:49 Order name: CBC with Diff [facility] 02/20 19:49 Order name: LFT's [facility] 02/20 19:49 Order name: Magnesium; Complete Time: 21:01 [facility] 02/20 19:49 Order name: NT PRO-BNP; Complete Time: 21:01 [facility] 02/20 19:49 Order name: PT-INR; Complete Time: 21:01 [facility] 02/20 19:49 Order name: Troponin (emerg Dept Use Only); Complete Time: 21:01 [facility] 02/20 19:49 Order name: Basic Metabolic Panel; Complete Time: 21:01 [facility] 02/20 19:49 Order name: CBC with Automated Diff; Complete Time: 21:01 [facility] 02/20 19:49 Order name: Liver (Hepatic) Function; Complete Time: 21:01 [facility] 02/20 20:25 Order name: Lipase; Complete Time: 21:01 [facility] 02/20 21:56 Order name: NT PRO-BNP [facility] 02/20 21:56 Order name: Urinalysis [facility] 02/20 21:56 Order name: Comprehensive Metabolic Panel [facility] 02/20 21:56 Order name: Comprehensive Metabolic Panel [facility] 02/20 21:56 Order name: Hemoglobin A1c [facility] 02/20 21:57 Order name: Hemoglobin A1c [facility] 02/20 21:57 Order name: Lipid Profile [facility] 02/20 21:57 Order name: Lipid Profile [facility] 02/20 21:57 Order name: Magnesium [facility] 02/20 21:57 Order name: Magnesium [facility] 02/20 21:57 Order name: Phosphorus [facility] 02/20 21:57 Order name: Phosphorus [facility] 02/20 21:57 Order name: T4 Free [facility] 02/20 21:57 Order name: T4 Free [facility] 02/20 21:57 Order name: Thyroid Stimulating Hormone [facility] 02/20 21:57 Order name: Thyroid Stimulating Hormone [facility] 02/20 21:57 Order name: Troponin I [facility] 02/20 21:57 Order name: Troponin I [facility] 02/20 19:49 Order name: XRAY Chest (1 view); Complete Time: 21:01 [facility] 02/20 19:49 Order name: EKG; Complete Time: 19:49 [facility] 02/20 19:49 Order name: Cardiac monitoring; Complete Time: 19:49 [facility] 02/20 19:49 Order name: EKG - Nurse/Tech; Complete Time: 19:51 [facility] 02/20 19:49 Order name: IV Saline Lock; Complete Time: 20:00 [facility] 02/20 19:49 Order name: Labs collected and sent; Complete Time: 20:00 [facility] 02/20 19:49 Order name: O2 Sat Monitoring; Complete Time: 19:49 [facility] 02/20 21:13 Order name: CONS Physician Consult [facility] 02/20 21:56 Order name: Consistent Carb (ADA) [address] [facility] 02/20 21:56 Order name: Dietitian Consult [facility] 02/20 21:57 Order name: Troponin I [facility] 02/20 21:57 Order name: EKG Electrocardiogram [facility] 02/20 21:57 Order name: EKG Electrocardiogram [facility] 02/20 21:57 Order name: CBC with Automated Diff [facility] 02/20 21:57 Order name: CBC with Automated Diff [facility] 02/21 02:06 Order name: NT PRO-BNP [facility] 02/21 08:19 Order name: Glucose, Ancillary Testing [facility] 02/21 11:52 Order name: Glucose, Ancillary Testing [facility] Administered Medications: 21:15 Not Given (Patient Refused): morphine 2 mg IVP once; (PAIN>8) RASS on ADMN: Combtv4, ad5 Very Agttd3, Agttd2, Rstlss1, AlertClm0, Drwsy-1, LtSdtn-2, ModSdtn-3, DpSdtn-4, UnArsble-5 x2 21:15 Not Given (Patient Refused): Zofran (Ondansetron) 4 mg IVP once; over 2 minutes ad5 21:25 Drug: Aspirin Chewable Tablet 324 mg Route: PO; ad5 Disposition Summary: 02/20/21 21:16 Hospitalization Ordered Hospitalization Status: Observation [facility] Provider: Dawit Rodríguez Cecil Condition: Stable [facility] Problem: new [facility] Symptoms: have improved [facility] Bed/Room Type: Standard [facility] Location: [facility] ER HOLD(02/20/21 23:28) bb Room Assignment: ERHOLD-(02/20/21 23:28) bb Diagnosis - Chest pain, unspecified [facility] Forms: - Medication Reconciliation Form mh7 - SBAR form 7 Signatures: Dispatcher [employer] EDSophia Mao RN RN bb Abby Schwartz RN RN aa5 Olman Hobson MD MD 7 Trim, Norbert tt3 Conor Santos Corrections: (The following items were deleted from the chart) 20:25 19:59 LIPASE+C.LAB.BRZ ordered. EDMS EDMS 23:25 21:16 Telemetry/MedSurg (observation) mh7 tt3 23:25 21:16 mh7 tt3 23:25 23:25 [facility] ER HOLD tt3 tt3 23:25 23:25 tt3 tt3 23:27 23:25 Telemetry/MedSurg (observation) tt3 tt3 23:27 23:25 tt3 tt3 23:27 23:27 [facility] ER HOLD tt3 tt3 23:27 23:27 tt3 tt3 23:28 23:27 Telemetry/MedSurg (observation) tt3 bb 23:28 23:27 tt3 bb
[2021-02-20] MEDS ORDERED: ASPIRIN 81 MG CHEWABLE TABLET ONE (21:39)
[2021-02-20] MEDS ORDERED: ACETAMINOPHEN 500 MG TAB PO PRN (21:55)
[2021-02-20] MEDS ORDERED: NITROGLYCERIN 0.4 MG/TAB SL PRN (21:55)
[2021-02-20] MEDS ORDERED: ONDANSETRON 4 MG/2 ML VIAL IV PRN (21:55)
[2021-02-20] MEDS ORDERED: MORPHINE 2 MG/ML SYR IV PRN (21:55)
--- NOTE | 2021-02-21 00:10 | P.HP ---
Certification for Inpatient Patient admitted to: Observation With expected LOS: <2 Midnights Patient will require the following post-hospital care: None Practitioner: I am a practitioner with admitting privileges, knowledge of patient current condition, hospital course, and medical plan of care. Services: Services provided to patient in accordance with Admission requirements found in Title 42 Section 412.3 of the Code of Federal Regulations Patient History Date of Service: 02/20/21 Reason for admission: chest pain History of Present Illness: Ms. Martines is a 55 yo F with HTN, HLD, T2DM who presents with constant 5/10 burning sternal chest pain that radiates to back and left shoulder beginning yesterday. Reports lightheadedness. Denies nausea, vomiting, diaphoresis. Symptoms improve when she holds still. She has never seen a editorial manager. Glu 248. Allergies No Known Allergies Allergy (Unverified 02/20/21 21:53) - Past Medical/Surgical History -: T2DM -: HTN -: HLD -: thyroid disease -: 2 C sections -: cholecystectomy - Social History Smoking Status: Never smoker Alcohol use: No CD- Drugs: No Caffeine use: No Place of Residence: Home Review of Systems 10-point ROS is otherwise unremarkable Cardiovascular: Chest Pain, Light Headedness Physical Examination - Physical Exam General: Alert, In no apparent distress HEENT: Atraumatic, PERRLA, Mucous membr. moist/pink, EOMI, Sclerae nonicteric Neck: Supple, 2+ carotid pulse no bruit, No LAD, Without JVD or thyroid abnormality Respiratory: Clear to auscultation bilaterally, Normal air movement Cardiovascular: Regular rate/rhythm, Normal S1 S2 Gastrointestinal: Normal bowel sounds, No tenderness Musculoskeletal: No tenderness Integumentary: No rashes Neurological: Normal gait, Normal speech, Normal strength at 5/5 x4 extr, Normal tone, Normal affect Lymphatics: No axilla or inguinal lymphadenopathy - Studies Laboratory Data (last 24 hrs) 02/20/21 19:58: Lipase Cancelled 02/20/21 19:52: PT 10.5, INR 0.91 02/20/21 19:52: WBC 7.90, Hgb 12.6, Hct 38.2, Plt Count 204 02/20/21 19:52: Sodium 136, Potassium 4.4, BUN 21 H, Creatinine 1.09, Glucose 248 H, Magnesium 2.4, Total Bilirubin 0.3, AST 12 L, ALT 16, Alkaline Phosphatase 74, Lipase 143 Assessment and Plan - Plan Assessment Chest pain T2DM HTN HLD Plan Chest pain - cardiology consulted, trend troponins, repeat EKG, daily ASA, BB, statin, lipd and thyroid panel pending, PRN morphine and NTG, DVT ppx T2DM - sliding scale insulin and accuchecks, A1c pending HTN - stable, continue to monitor HLD - stable, continue to monitor Discharge Plan: Home Plan to discharge in: 24 Hours - Advance Directives Does patient have a Living Will: No Does patient have a Durable POA for Healthcare: No - Code Status/Comfort Care Code Status Assessed: Yes (full code ) Critical Care: No Time Spent Managing Pts Care (In Minutes): 70
[2021-02-21 02:06] LABS: NT PRO-BNP 14 pg/mL (<125); Troponin I < 0.02 ng/mL (0.0-0.045)
[2021-02-21 03:33] VITALS: BMI 45.5
[2021-02-21] MEDS ORDERED: METOPROLOL TAR 25 MG TAB ONE (04:00)
[2021-02-21 05:13] LABS: Absolute Lymphocytes (CBC) 2.1 K/uL (0.7-4.9); Basophils % 1.2 % (0-1.3); Hematocrit 38.8 % (36.0-45.0); Lymphocytes % 30.3 % (15.3-44.8); MPV 9.6 fL (7.6-11.3); RBC Red Blood Cell Count 4.22 M/uL (3.86-4.86)
[2021-02-21 05:50] LABS: Albumin 3.4 g/dL (3.4-5.0); Bilirubin Total 0.3 mg/dL (0.2-1.0); Magnesium 2.6 mg/dL (1.8-2.4); Phosphorus 3.5 mg/dL (2.5-4.9); Protein, Total 7.2 g/dL (6.4-8.2)
[2021-02-21] MEDS ORDERED: METOPROLOL TAR 25 MG TAB PO SCH (06:00)
[2021-02-21] MEDS: INSULIN -REGULAR HUMAN 50 UNIT/0.5 ML ML SQ SCH ×2 (07:30→11:30)
[2021-02-21] MEDS ORDERED: ASPIRIN EC 81 MG TAB PO SCH (09:00)
[2021-02-21] MEDS ORDERED: ENOXAPARIN 40 MG/0.4 ML SQ SCH (09:00)
[2021-02-21] MEDS ORDERED: ENOXAPARIN 40 MG/0.4 ML SQ ONE (09:50)
[2021-02-21] MEDS ORDERED: ASPIRIN EC 81 MG TAB PO ONE (09:50)
[2021-02-21 11:08] VITALS: O2SAT 94
--- NOTE | 2021-02-21 11:45 | EKG ---
Test Date: 2021-02-20 Test Time: 15:08:16 Education Counselor: JODI MEASUREMENT RESULTS: Intervals: Rate: 74 OH: 156 QRSD: 80 QT: 386 QTc: 428 [place]: P: 29 OH: 156 QRS: 1 T: 37 INTERPRETIVE STATEMENTS: Normal sinus rhythm Low voltage QRS Cannot rule out Anterior infarct, age undetermined Abnormal ECG Compared to ECG 03/29/2005 11:25:00 Low QRS voltage now present Myocardial infarct finding now present Sinus bradycardia no longer present Electronically Signed On 02-21-21 11:42:16 CDT by Ponce Izaguirre
[2021-02-21 11:48] VITALS: BP 130/73; TEMP 98.1
[2021-02-21] MEDS ORDERED: INSULIN -REGULAR HUMAN 50 UNIT/0.5 ML ML ONE (12:39)
[2021-02-21] MEDS ORDERED: ATORVASTATIN 20 MG TAB PO SCH (21:00)
--- NOTE | 2021-02-22 13:14 | CON ---
Date of Consultation: 02/21/2021 Reason For Consultation: Chest pain. History Of Present Illness: The patient is a 55-year-old female with history of depression, diabetes, hypertension, cholesterol, and hypothyroidism, came in with chest pain that is located ganesh ashly in the substernal area that started. It occurred last night and radiated to the left back. S he got dizzy, lightheaded, and nauseated with it. Denied any nausea. Denied any vomiting, PND, orth opnea, pedal edema, diaphoresis, or palpitations or syncope. Symptoms were aggravated by movement th at were not exertional. She has already ruled out for an MN. Allergies: NONE. Past Medical History: As stated above. Family History: Noncontributory. Review of Systems: Negative. Social History: Negative. Medications: At home include, Jardiance, Neurontin, insulin, levothyroxine, metoprolol, and Crestor. Physical Examination: Vital Signs: Stable, afebrile, sinus rhythm. HEENT: Negative. Neck: Supple with no bruit. Chest: Clear to auscultation and percussion. Cardiac: Revealed a regular rhythm and rate. No murmurs, gallops, or rubs. Abdomen: Benign. Extremities: Revealed no clubbing, cyanosis, or edema. Diagnostic Data: Reveals an elevated glucose, elevated hemoglobin A1c of 13.4. Her triglycerides 19 6. The cholesterol 231. Her LDL was 149. Chest x-ray was negative. EKG was negative. Troponin wa s negative. Impression And Plan: Atypical chest pain, most likely musculoskeletal and the patient with very high risk for heart disease. She has a very poorly controlled diabetes and dyslipidemia. I think her Cr estor needs to be increased in dose. I think she needs to have her diabetes much better controlled w ith her primary care or maybe even have her see an wool shearing supervisor. Regarding her chest pain, I thin k an outpatient workup and an appointment is very reasonable. She can go home from my standpoint. I will make arrangement for her to see me as an outpatient. WENDY/ROB Voice ID: [id number] Report ID: [id number]
== END 2021-02-21 14:32 | disposition home or self-care (01) ==
LOC: ER 14:54 → ERHOLD 21:12
PROVIDERS: ADMIT Hospitalist; ATTEND Hospitalist
DX: R07.89 Other chest pain (principal); E11.65 Type 2 diabetes mellitus with hyperglycemia; E78.5 Hyperlipidemia, unspecified; E78.00 Pure hypercholesterolemia, unspecified; E03.9 Hypothyroidism, unspecified; F32.9 Major depressive disorder, single episode, unspecified; Z79.4 Long term (current) use of insulin; Z79.899 Other long term (current) drug therapy; Z90.49 Acquired absence of other specified parts of digestive tract
CPT/HCPCS: 93005; 85025 ×2; 80048; 36415; 83735 ×2; 84100; 85610; 80061; 82947 ×2; 80076; 84443; 83036; 84484 ×3; 84439; 83690; 80053; 83880 ×2; 71045; 94760 ×2; 99285; J1650; G0378; J2270; J2405

== ENCOUNTER 2024-11-19 16:21 | Emergency (ER) | payer BC ==
[2024-11-19] MEDS ORDERED: MAGNES/ALUMIN/SIMET 30ML UCUP ONE (16:37)
[2024-11-19] MEDS ORDERED: FAMOTIDINE 20 MG/2 ML VIAL IV ONE (16:37)
[2024-11-19] MEDS ORDERED: LIDOCAINE VISCOUS 2% 10ML ORAL SOLN ONE (16:38)
[2024-11-19 16:54] LABS: Absolute Basophils 0.1 K/uL (0-0.5); Absolute Eosinophils 0.2 K/uL (0-0.5); Absolute Lymphocytes (CBC) 2.5 K/uL (0.7-4.9); Absolute Monocytes 0.6 K/uL (0.1-1.3); Absolute Neutrophil 5.6 K/uL (1.8-8.0); Basophils % 1.3 % (0-1.3); Eosinophils % 2.7 % (0-4.4); Hematocrit 37.6 % (36.0-45.0); Hemoglobin 12.9 g/dL (12.0-15.0); Lymphocytes % 27.3 % (15.3-44.8); MCH 29.8 pg (27.0-35.0); MCHC 34.2 g/dL (32.0-36.0); MCV 87.3 fL (80-100); MPV 9.8 fL (7.6-11.3); Monocytes % 6.3 % (3.3-12.3); Neutrophils % 62.4 % (41.7-73.7); Platelets 282 thou/uL (152-406); RBC Red Blood Cell Count 4.31 M/uL (3.86-4.86); Red Cell Distribution Width 14.5 % (12.1-15.2)
[2024-11-19 17:00] LABS: PT Prothrombin Time 10.7 SECONDS (10-13.0); Protime INR 0.94
[2024-11-19 17:13] LABS: Anion Gap 9.3 mEq/L (5.0-15.0); Potassium 4.3 mEq/L (3.5-5.1); Troponin High Sensitivity 6.5 pg/mL (<58.9)
--- NOTE | 2024-11-19 18:10 | RAD REPORT ---
EXAMINATION: ONE VIEW CHEST XR CLINICAL INDICATION: Female, 59 years old.,CHEST PAIN TECHNIQUE: Frontal chest projection is submitted. Examination is limited by patient positioning and t echnique. COMPARISON: 02/20/2021 FINDINGS: The lungs are well inflated and clear. No pneumothorax or sizable effusion. The heart is normal in s ize. Mediastinal contours are unremarkable. IMPRESSION: No acute intrathoracic abnormalities.
--- NOTE | 2024-11-19 18:35 | EDPHYS ---
Physician Documentation [facility] Name: Cindy Martines Age: 59 yrs Sex: Female : 1965 Arrival Date: 11/19/2024 Time: 16:21 Bed 20 Private MD: ED Physician Emmanuel Boogie HPI: 11/19 18:29 This 59 yrs old Female presents to ER via Ambulatory with complaints of Chest rn Pain, abd pain. 18:29 The patient or guardian reports chest pain that is located primarily in the substernal rn area, epigastric area. The pain radiates to The chest pain is described as burning. Severity of pain: At its worst the pain was. 18:31 Patient reports has been having intermittent upper abdominal and chest pain. Worse rn after she eats, worse when she lays flat. Feels like it is indigestion. No fever or chills. Reports decreased appetite and nausea. Takes a lot of Tums and improve symptoms. No known cardiac problems.. Historical: - Allergies: 16:53 No Known Allergies; cm10 - PMHx: 16:53 Depression; Diabetes - IDDM; High Cholesterol; Hypertension; Hypothyroidism; cm10 - PSHx: 16:53 Cholecystectomy; section; cm10 - Immunization history:: Adult Immunizations up to date. - Infectious Disease History:: Denies. - Social history:: Smoking status: Patient denies any tobacco usage or history of. - Family history:: not pertinent. - Hospitalizations: : No recent hospitalization is reported. ROS: 18:31 Constitutional: Negative for fever, chills, and weight loss, Cardiovascular: Negative rn for chest pain, palpitations, and edema, Respiratory: Negative for shortness of breath, cough, wheezing, and pleuritic chest pain, Abdomen/GI: Negative for abdominal pain, nausea, vomiting, diarrhea, and constipation, Exam: 17:17 ECG was reviewed by the Attending Physician. rn 18:32 Constitutional: This is a well developed, well nourished patient who is awake, alert, rn and in no acute distress. Cardiovascular: Regular rate and rhythm. No pulse deficits. Respiratory: No increased work of breathing, no retractions or nasal flaring. Abdomen/GI: Soft, mild epigastric tenderness. No rebound or guarding. No peritoneal signs. Vital Signs: 16:51 BP 169 / 101; Pulse 86; Resp 17; Temp 98.1; Pulse Ox 99% ; Weight 111.13 kg; Height 5 cm10 ft. 0 in. ; Pain 8/10; 18:27 BP 182 / 83; Pulse 71; Resp 17; Pulse Ox 97% on R/A; cm10 16:51 Body Mass Index 47.85 (111.13 kg, 152.4 cm) cm10 16:51 Pain Scale: Adult cm10 MDM: 16:24 Medical Screening Exam initiated rn 18:32 Differential diagnosis: anxiety, coronary artery disease esophagitis, gastritis, rn gastroesophageal reflux disease (GERD), hiatal hernia, pancreatitis, peptic ulcer disease, pneumothorax. Data reviewed: vital signs, nurses notes, lab test result(s), EKG, radiologic studies, plain films, and as a result, I will discharge patient. Counseling: I had a detailed discussion with the patient and/or guardian regarding the historical points, exam findings, and any diagnostic results supporting the discharge/admit diagnosis, lab results, radiology results, the need for outpatient follow up, to return to the emergency department if symptoms worsen or persist or if there are any questions or concerns that arise at home. Response to treatment: the patient's symptoms have markedly improved after treatment, the patient's symptoms have resolved after treatment, the patient's condition has returned to base line, the patient is now symptom free, and as a result, I will discharge patient. Special discussion: I discussed with the patient/guardian in detail that at this point there is no indication for admission to the hospital. It is understood, however, that if the symptoms persist or worsen the patient needs to return immediately for re-evaluation. Based on the history and exam findings, there is no indication for further emergent testing or inpatient evaluation. I discussed with the patient/guardian the need to see the client renewal specialist for further evaluation of the symptoms. ED course: Symptoms completely resolved after antacids and GI cocktail. Troponin negative. No ischemia on ECG. Story of months of epigastric pain, burning sensation with radiation to the back and chest are consistent with gastritis/GERD/esophagitis. No evidence of bleeding. Will discharge home with Protonix prescription and GI follow-up. Return precautions given and understood.. 11/19 16:25 Order name: Basic Metabolic Panel; Complete Time: 17:35 rn 11/19 16:25 Order name: CBC with Diff; Complete Time: 17:35 rn 11/19 16:25 Order name: NT PRO-BNP; Complete Time: 17:35 rn 11/19 16:25 Order name: PT-INR; Complete Time: 17:35 rn 11/19 16:25 Order name: Troponin HS; Complete Time: 17:35 rn 11/19 16:32 Order name: Lipase; Complete Time: 18:20 rn 11/19 16:25 Order name: XRAY Chest (1 view); Complete Time: 18:20 rn 11/19 16:25 Order name: Cardiac monitoring; Complete Time: 16:48 rn 11/19 16:25 Order name: EKG - Nurse/Tech; Complete Time: 16:48 rn 11/19 16:25 Order name: IV Saline Lock; Complete Time: 16:48 rn 11/19 16:25 Order name: Labs collected and sent; Complete Time: 16:48 rn 11/19 16:25 Order name: O2 Per Protocol; Complete Time: 16:48 rn 11/19 16:25 Order name: O2 Sat Monitoring; Complete Time: 16:48 rn EC:17 Rate is 78 beats/min. Rhythm is regular. QRS [place] is Normal. DC interval is normal. QRS rn interval is normal. QT interval is normal. No Q waves. T waves are Normal. No ST changes noted. Clinical impression: NSR w/ Non-specific ST/T Changes. Interpreted by me. Reviewed by me. Administered Medications: 16:51 Drug: GI Cocktail without - (Maalox PO 30 ml, Lidocaine Mucous Membrane 2 % 15 cm10 ml) PO once Route: PO; 17:36 Follow up: Response: No adverse reaction; Marked relief of symptoms cm10 16:51 Drug: Famotidine IVP 20 mg IVP once; dilute with 10 mL 0.9% NaCl; give over 2 minutes cm10 Route: IVP; Site: right antecubital; 17:37 Follow up: Response: No adverse reaction; Marked relief of symptoms cm10 Disposition Summary: 11/19/24 18:35 Discharge Ordered Notes: Location: Home rn Problem: new rn Symptoms: have improved rn Condition: Stable rn Diagnosis - Gastro-esophageal reflux disease with esophagitis rn Followup: rn - With: Gamaliel Petty MD - When: As needed - Reason: Recheck today's complaints, Re-evaluation by your physician Discharge Instructions: - Discharge Summary Sheet rn - Food Choices for Gastroesophageal Reflux Disease, Adult rn - Esophagitis rn - Indigestion rn - Gastroesophageal Reflux Disease, Adult, [id number] rn Forms: - Medication Reconciliation Form rn - Antibiotic bankruptcy attorney - Prescription Opioid Use rn - Patient Portal Instructions rn - Leadership Thank You Letter rn Prescriptions: - Protonix 40 mg Oral Tablet - take 1 tablet ORAL route once daily; 30 tablet; Refills: 0, Product Selection rn Permitted Signatures: Dispatcher [employer] Emmanuel Clay MD MD rn Martinez, Clarissa, RN RN cm10 Corrections: (The following items were deleted from the chart) 16:26 16:26 Chest Single View+[email or web address].[email or web address] ordered. [facility]
--- NOTE | 2024-11-19 18:35 | ER ---
Nurse's Notes [facility] Name: Cindy Martines Age: 59 yrs Sex: Female : 1965 Arrival Date: 11/19/2024 Time: 16:21 Bed 20 Private MD: Diagnosis: Gastro-esophageal reflux disease with esophagitis Presentation: 11/19 16:51 Chief complaint: Patient states: epigastric pain that radiates into chest onset a few cm10 months ago. Pt states that the pain got worse yesterday. Coronavirus screen: Client denies travel out of the [place] in the last 14 days. Ebola Screen: Patient denies travel to an Ebola-affected area in the 21 days before illness onset. Initial Sepsis Screen: Does the patient meet any 2 criteria? No. Patient's initial sepsis screen is negative. Does the patient have a suspected source of infection? No. Patient's initial sepsis screen is negative. Risk Assessment: Do you want to hurt yourself or someone else? Patient reports no desire to harm self or others. Onset of symptoms was November 19, 2024. 16:51 Method Of Arrival: Ambulatory cm10 16:51 Acuity: JEYSON 3 cm10 Triage Assessment: 16:53 General: Appears in no apparent distress. uncomfortable, Behavior is calm, cooperative. cm10 Pain: Complains of pain in epigastric area Pain radiates to chest Pain currently is 8 out of 10 on a pain scale. at worst was 10 out of 10 on a pain scale. Quality of pain is described as aching, dull, sharp, shooting. Neuro: No deficits noted. Level of Consciousness is awake, alert, obeys commands, Oriented to person, place, time, situation, Appropriate for age. Cardiovascular: Heart tones present Patient's skin is warm and dry. Rhythm is regular. Respiratory: No deficits noted. Airway is patent Respiratory effort is even, unlabored, Respiratory pattern is regular, symmetrical, Breath sounds are clear bilaterally. GI: Reports epigastric pain, indigestion. Historical: - Allergies: 16:53 No Known Allergies; cm10 - PMHx: 16:53 Depression; Diabetes - IDDM; High Cholesterol; Hypertension; Hypothyroidism; cm10 - PSHx: 16:53 Cholecystectomy; section; cm10 - Immunization history:: Adult Immunizations up to date. - Infectious Disease History:: Denies. - Social history:: Smoking status: Patient denies any tobacco usage or history of. - Family history:: not pertinent. - Hospitalizations: : No recent hospitalization is reported. Screenin:[facility] ED Fall Risk Assessment (Adult) History of falling in the last 3 months, cm10 including since admission No falls in past 3 months (0 pts) Confusion or Disorientation No (0 pts) Intoxicated or Sedated No (0 pts) Impaired Gait No (0 pts) Mobility Assist Device Used No (0 pt) Altered Elimination No (0 pt) Score/Fall Risk Level 0 - 2 = Low Risk Oriented to surroundings, Maintained a safe environment, Hourly rounding (assess needs \T\ fall precautionary measures) done. Abuse screen: Denies threats or abuse. Denies injuries from another. Nutritional screening: No deficits noted. Tuberculosis screening: No symptoms or risk factors identified. Assessment: 17:36 Reassessment: Patient appears in no apparent distress at this time. Patient and/or cm10 family updated on plan of care and expected duration. Pain level reassessed. Patient is alert, oriented x 3, equal unlabored respirations, skin warm/dry/pink. Patient denies pain at this time. Patient states feeling better. Patient states symptoms have improved. Vital Signs: 16:51 BP 169 / 101; Pulse 86; Resp 17; Temp 98.1; Pulse Ox 99% ; Weight 111.13 kg; Height 5 cm10 ft. 0 in. ; Pain 8/10; 18:27 BP 182 / 83; Pulse 71; Resp 17; Pulse Ox 97% on R/A; cm10 16:51 Body Mass Index 47.85 (111.13 kg, 152.4 cm) cm10 16:51 Pain Scale: Adult cm10 ED Course: 16:22 Patient arrived in ED. im 16:24 Emmanuel Boogie MD is Attending Physician. rn 16:25 EKG done, by ED staff, reviewed by Emmanuel Boogie MD. ty 16:26 Barb Hayes, MADELINE is Primary Nurse. cm10 16:48 Basic Metabolic Panel Sent. ty 16:48 CBC with Diff Sent. ty 16:48 NT PRO-BNP Sent. ty 16:48 PT-INR Sent. ty 16:48 Troponin HS Sent. ty 16:48 Initial lab(s) drawn, by va, sent to lab. Inserted saline lock: 20 gauge in right ty forearm, using aseptic technique. Blood collected. Flushed with 10 mL NS. 16:52 Triage completed. cm10 16:53 Arm band placed on right wrist. Patient placed in an exam room, on a stretcher. cm10 16:55 Patient has correct armband on for positive identification. Bed in low position. Call cm10 light in reach. Side rails up X 1. Client placed on continuous cardiac and pulse oximetry monitoring. NIBP monitoring applied. biochemistry professor on. 17:09 XRAY Chest (1 view) In Process Unspecified. EDMS 18:35 Gamaliel Petty MD is Referral Physician. rn 18:53 Provided Education on: follow-up instructions. cm10 18:54 No provider procedures requiring assistance completed. IV discontinued, intact, cm10 bleeding controlled, No redness/swelling at site. Pressure dressing applied. Patient maintains SpO2 saturation greater than 95% on room air. Administered Medications: 16:51 Drug: GI Cocktail without - (Maalox PO 30 ml, Lidocaine Mucous Membrane 2 % 15 cm10 ml) PO once Route: PO; 17:36 Follow up: Response: No adverse reaction; Marked relief of symptoms cm10 16:51 Drug: Famotidine IVP 20 mg IVP once; dilute with 10 mL 0.9% NaCl; give over 2 minutes cm10 Route: IVP; Site: right antecubital; 17:37 Follow up: Response: No adverse reaction; Marked relief of symptoms cm10 Medication: 16:54 VIS not applicable for this client. cm10 Outcome: 18:35 Discharge ordered by . rn 18:53 Discharged to home ambulatory, with family, cm10 18:53 Condition: good 18:53 Discharge instructions given to patient, Instructed on discharge instructions, follow up and referral plans. medication usage, Demonstrated understanding of instructions, follow-up care, medications, Prescriptions given X 1, 18:54 Patient left the ED. cm10 Signatures: Dispatcher [employer] EDIN Emmanuel Boogie MD MD rn Mendoza, Itzel im Martinez, Clarissa, RN RN cm10 Crescencio Garland
[2024-11-19 19:08] VITALS: TEMP 98.1
[2024-11-19 19:10] VITALS: BP 182/83; O2SAT 97
--- NOTE | 2024-11-20 10:48 | EKG ---
Test Date: 2024-11-19 Test Time: 16:28:56 Section Cutter: JULIA MEASUREMENT RESULTS: Intervals: Rate: 78 IL: 158 QRSD: 84 QT: 370 QTc: 421 Waucoma: P: 32 IL: 158 QRS: 1 T: 119 INTERPRETIVE STATEMENTS: Normal sinus rhythm T wave abnormality, consider lateral ischemia Abnormal ECG Compared to ECG 02/20/2021 15:08:16 T-wave abnormality now present Possible ischemia now present Myocardial infarct finding no longer present Electronically Signed On 11-20-24 10:47:09 CDT by Jose Torrez
== END 2024-11-19 18:54 | disposition home or self-care (01) ==
LOC: ER 16:21
DX: K21.00 Gastro-esophageal reflux disease with esophagitis, without bleeding (principal); I10 Essential (primary) hypertension
CPT/HCPCS: 36415; 71045; 80048; 83690; 83880; 84484; 85025; 85610; 93005; 96374; 99285